=== PATIENT | female | born 1995 | race Caucasian/White ===

== ENCOUNTER → 2018-06-28 | Outpatient (CLI) | payer OTHER ==
--- NOTE | 2018-07-08 19:14 | SLEEP ---
[address] [address] SLEEP STUDY REPORT Name: TEMI ROSS Room: [facility]#: [id number] Admission: 06/28/18 Attend Phys: Majo Mclaughlin RN Discharge: Date of : 89 Report #: [id number] THIS REPORT FOR: //name// CC: Celso Hayes [place] This study has been reviewed in its entirety by a board certified sleep specialist DATE OF SERVICE: 06/28/2018 ATTENDING PHYSICIAN: ABDOUL Murry The patient is a 22-year-old who weighs 222 pounds with a BMI of 35.8. The patient's [place] score was 8. The patient underwent home sleep study performed at [facility]. Total recording time was 696 minutes. During the night study, the patient had 2 central apneas, 12 obstructive apneas and no mixed apneas, and 15 hypopneas. The patient's apnea-hypopnea index for the entire night was only 2.5 per hour. No supine sleep observed. Nocturnal oximetry study revealed an average oxygen saturation of 95% with the lowest of 86%. The patient did not have any significant desaturation of less than 88%. Mean heart rate was 70 beats per minute with a maximum of 111 beats per minute. IMPRESSION: 1. No clinically significant sleep disordered breathing. The patient's apnea-hypopnea index for the entire night was 2.5 per hour. 2. No clinically significant nocturnal hypoxia. RECOMMENDATIONS: 1. The patient does not meet the criteria for CPAP initiation due to very low AHI. 2. If clinical suspicion for sleep apnea is still high, then consider doing in-lab polysomnogram. 3. Weight loss is strongly advised. 4. Avoid [employer] [place] [address] SLEEP STUDY REPORT Name: TEMI ROSS Room: [facility]#: [id number] Admission: 06/28/18 Attend Phys: Majo Mclaughlin RN Discharge: Date of : 89 Report #: [id number] 5. Cautioned regarding driving until the patient's subjective hypersomnia has resolved. <ELECTRONICALLY SIGNED> By: Camilo Tavera MD 07/08/18 [id number] Tavera MD /nt
== END ==
LOC: M.SLEEPLAB 15:14
DX: R40.0 Somnolence (principal)